=== PATIENT | male | born 1955 ===

== ENCOUNTER 2017-11-21 22:22 | Emergency (ER) | payer BC, MEDICAID ==
[2017-11-21 22:24] VITALS: BMI 34.3
[2017-11-21 22:38] LABS: BASO # 0.1 K/uL (0.0-0.2); EOS # 0.4 K/uL (0.0-0.7); EOS % 2.9 % (0.0-4.0); HEMOGLOBIN 14.1 g/dL (12.0-18.0); LYMPH # 1.2 K/uL (1.0-4.3); LYMPH % 8.7 % (20.0-40.0); MEAN CELL VOLUME 86.2 fL (80.0-94.0); MEAN CORPUSCULAR HEMOGLOBIN 29.1 pg (27.0-31.0); MEAN CORPUSCULAR HGB CONC 33.7 g/dL (33.0-37.0); MEAN PLATELET VOLUME 8.3 fL (7.2-11.7); MONO # 0.7 K/uL (0.0-0.8); MONO % 5.2 % (0.0-10.0); NEUT # 11.1 K/uL (1.8-7.0); NEUT % 82.2 % (50.0-75.0); PLATELET COUNT 189 K/uL (130-400); RBC 4.86 Mil/uL (4.40-5.90); RED CELL DISTRIBUTION WIDTH 13.6 % (11.5-14.5); WHITE BLOOD COUNT 13.5 K/uL (4.8-10.8)
[2017-11-21 22:45] LABS: INR 1.1; PROTHROMBIN TIME 11.6 SECONDS (9.7-12.2)
--- NOTE | 2017-11-21 22:50 | C.PDOC ---
History Of Present Illness 62-year-old male brought in by ambulance for acute change in mental status and left sided weakness. Patient played 2 hours of soccer outside this evening, and had reported feeling lightheaded and dizzy. Patient then left the soccer field and was trying to drive home with and teammate. He then began vomiting and family noted diminished mental status. There was no head trauma during the soccer game. They got the patient home, where he syncopized in the shower, and was found by family lying on shower floor. Last known well at 21:45 tonight. In the ER patient is awake, obtunded, with no preferential gaze. EMS found finger stick to be 240 in the field. Time Seen by Provider: 11/21/17 22:40 Chief Complaint (Nursing): Weakness/Neurological Deficit History Per: Family History/Exam Limitations: no limitations Onset/Duration Of Symptoms: Mins Current Symptoms Are (Timing): Still Present Number Of Syncopal Episodes: 1 Additional History Per: EMS - Symptoms Of CVA Character Of Deficits: Left: Weakness Recent Head Trauma: No Past Medical History Reviewed: Historical Data, Nursing Documentation, Vital Signs Vital Signs: Last Vital Signs Temp 98.8 F 11/21/17 23:33 Pulse 64 11/21/17 23:33 Resp 17 11/21/17 23:33 BP 118/57 L 11/21/17 23:33 Pulse Ox 97 11/21/17 23:43 Other Surgeries: Exploratory abdominal surgery Family History: States: No Known Family Hx - Social History Hx Tobacco Use: No Hx Alcohol Use: No Hx Substance Use: No Review Of Systems Review Of Systems: ROS cannot be obtained secondary to pt's inabilty to answer questions. Cardiovascular: Positive for: Light Headedness Gastrointestinal: Positive for: Vomiting Neurological: Positive for: Weakness (left upper and lower extremities), Altered Mental Status, Dizziness Physical Exam - Physical Exam Skin: Warm, Dry Head: Normacephalic Eye(s): bilateral: PERRL Oral Mucosa: Moist Neck: Normal ROM, Supple Chest: Symmetrical, No Deformity Cardiovascular: Rhythm Regular, No Murmur Respiratory: Normal Breath Sounds, No Rales, No Rhonchi, No Wheezing Gastrointestinal/Abdominal: Soft, No Tenderness, No Distention Back: Normal Inspection Extremity: No Normal ROM (Left arm and leg with no movement), Capillary Refill ( < 2 sec), No Swelling Pulses: Left Dorsalis Pedis: Normal, Right Dorsalis Pedis: Normal Neurological/Psych: Other (Awake, obtunded, no preferential gaze) ED Course And Treatment - Laboratory Results Result Diagrams: 11/21/17 22:35 11/21/17 22:35 O2 Sat by Pulse Oximetry: 97 (RA) Pulse Ox Interpretation: Normal - CT Scan/US Head CT Other Rad Studies (CT/US): Read By Radiologist, Radiology Report Reviewed CT/US Interpretation: 1. Extensive bilateral acute subarachnoid hemorrhage most prominent in the basal cisterns. and sylvian fissure. Findings are suspicious for rupture aneurysm. CT evaluation. recommended. 2. Small amount of intraventricular hemorrhage in the third and fourth ventricles. 3. Mucosal thickening paranasal sinuses with air-fluid levels in the maxillary sinuses. Cannot. exclude acute sinusitis. NIHSS Stroke Scale 2 - Date/Time Evaluation Performed Date Performed: 11/22/17 Time Performed: 22:20 - How Severe is the Stroke Level of Consciousness: 2=Obtunded LOC to Questions: 2=Neither correct LOC to commands: 2=Neither correct Best Gaze: 0=Normal Visual: 0=No visual loss Facial: 0=Normal Motor Arm - Left: 4=No movement Motor Arm - Right: 0=No drift Motor Leg - Left: 4=No movement Motor Leg - Right: 0=No drift Limb Ataxia: 0=Absent Sensory: 0=Normal Best Language: 3=Mute Dysarthia: 2=Severe, near unintelligible or worse Extinction & Inattention (Neglect): 0=Normal, no object Score: 19 Severity Of Stroke: 16-20 = Moderate/Severe Stroke rTPA Inclusion/Exclusion - Refusal of Treatment Patient Refused Treatment: No - Inclusion Criteria for Altepase Patient is 18 years or Older: Yes The Clinical Diagnosis of Ischemic Stroke That is Causing a Potentially Disabling Neurological Deficit: Yes Time of Onset is Well Established to be Less Than 270 Minute Before Treatment Would Begin: Yes Risk/Benefit Discussed With Patient/Family Member Present: No - Exclusion Criteria for Altepase Uncontrolled Hypertension at Time of Treatment (Systolic BP above 185 or Diastolic BP above 110 mmHg): No Active Internal Bleeding: Yes Known Bleeding Diathesis Including but Not Limited to: Platelets Below 100,000/ mm,PTT Above 40 sec After Heparin Use, Current Use of Oral Anitcoagulant With INR Greater Than 1.7 or PT Greater Than 15 secs: No Evidence of an Intracranial Hemorrhage: Yes Evidence of Major Acute Infarct With Signs Greater Than 1/3 MCA Territory: No Suspicion of Subarachnoid Hemorrhage on Pretreatment Evaluation Even if CT Head Negative For Hemorrhage: Yes - Warning to TPA With Conditions Following Conditions Weighed Against Anticipated Benefit: No Medical Decision Making Medical Decision Making: Impression: 62 y/o M with altered mental status, left sided weakness Code Stroke called at 10:20. Plan: --EKG --Head CT --CMP --Hemoglobin A1c --Lipid panel --Troponin I --CBC --PTT --Prothrombin time --Blood type/screen --Urinalysis --Chest X-Ray 22:45 Received call back from Dr. Bingham, who observes large subarachnoid bleed on CT scan and recommends transfer to [place]. 23:05 Spoke with Linda, neurosurgery coordinator at [facility] , patient accepted under service of Dr. Live. Will coordinate transfer with EMS. 23:38 Patient left the ER- transferred to [facility] by [facility] ambulance. Disposition Counseled Patient/Family Regarding: Studies Performed, Diagnosis - Disposition Disposition: Trans to Other Acute Care Hosp Disposition Time: 23:38 Condition: CRITICAL Forms: [facility] ([place]) - POA Core Measure Indicators: Code Stroke - Clinical Impression Clinical Impression: Subarachnoid bleed - Scribe Statement The provider has reviewed the documentation as recorded by the Scribe (Racheal Cote) Provider Attestation: All medical record entries made by the Scribe were at my direction and personally dictated by me. I have reviewed the chart and agree that the record accurately reflects my personal performance of the history, physical exam, medical decision making, and the department course for this patient. I have also personally directed, reviewed, and agree with the discharge instructions and disposition.
[2017-11-21 22:52] LABS: ALB/GLOB RATIO 1.6 (1.0-2.1); ALBUMIN 4.5 g/dL (3.5-5.0); ALT/SGPT 52 U/L (21-72); AST/SGOT 30 U/L (17-59); BLOOD UREA NITROGEN 19 mg/dL (9-20); GFR AFRICAN-AMERICAN > 60; GFR NON-AFRICAN AMERICAN > 60; HDL CHOLESTEROL 31 mg/dL (30-70)
[2017-11-21 22:55] LABS: BANDS 3 % (0-2); EOSINOPHIL 4 % (0-4); LYMPHOCYTE 9 % (20-40); MONOCYTE 2 % (0-10); NEUTROPHIL 82 % (50-75); PLATELET ESTIMATE NORMAL (NORMAL); POIKILOCYTOSIS SLIGHT; TOTAL CELLS COUNTED 100
[2017-11-21 22:56] LABS: LARGE PLATELETS PRESENT; OVALOCYTES SLIGHT
[2017-11-21 23:03] LABS: LDL CHOLESTEROL 91 mg/dL (0-129)
[2017-11-21 23:34] VITALS: O2SAT 97
[2017-11-21 23:43] VITALS: BP 118/57; PULSE 64; RESP 17; TEMP 98.8
--- NOTE | 2017-11-22 06:14 | CT ---
Date of service: 11/21/2017 PROCEDURE: CT HEAD WITHOUT CONTRAST. HISTORY: Code Stroke COMPARISON: None available. TECHNIQUE: Axial computed tomography images were obtained through the head/brain without intravenous contrast. Radiation dose: Total exam DLP = 1739.91 mGy-cm. This CT exam was performed using one or more of the following dose reduction techniques: Automated exposure control, adjustment of the mA and/or kV according to patient size, and/or use of iterative reconstruction technique. FINDINGS: HEMORRHAGE: There is extensive bilateral acute subarachnoid hemorrhage most prominent in the basilar cisterns and sylvian fissures right more than left. Findings are highly suspicious for rupture aneurysm. Small amount of intraventricular hemorrhage noted also at the 3rd and 4th ventricles BRAIN: There is diffuse brain edema and effacement of the sulci noted. There is approximately 2 millimeter [id number] midline shift noted at the frontal region. . VENTRICLES: The ventricles are slightly small in size likely due to acute brain edema and mass effect. CALVARIUM: Unremarkable. PARANASAL SINUSES: Complete opacification of the visualized right frontal sinus and partial opacification of the ethmoid and maxillary sinuses suggestive of sinusitis. MASTOID AIR CELLS: Unremarkable as visualized. No inflammatory changes. OTHER FINDINGS: None. IMPRESSION: Extensive subarachnoid hemorrhage noted bilaterally more prominent at the basilar Systane and sylvian fissures, right larger than left likely due to acute rupture of intracranial aneurysm. Further assessment by CTA is suggested. Diffuse brain edema and effacement of the sulci. Mild right to left midline shift noted at the frontal region measures 2-3 millimeter. Small amount of intraventricular hemorrhage noted at the 3rd and 4th ventricles. Findings suggestive of acute sinusitis involving the right frontal ethmoid and maxillary sinuses. Preliminary report was submitted by [facility].
--- NOTE | 2017-11-22 08:42 | RAD ---
Date of service: 11/21/2017 HISTORY: Code Stroke COMPARISON: No prior. FINDINGS: LUNGS: The lungs are clear. PLEURA: No significant pleural effusion identified, no pneumothorax apparent. CARDIOVASCULAR: Normal. OSSEOUS STRUCTURES: No significant abnormalities. VISUALIZED UPPER ABDOMEN: Normal. OTHER FINDINGS: None. IMPRESSION: No active pulmonary disease.
--- NOTE | 2017-11-24 10:28 | CARD ---
APPROVED REPORT Date of service: 11/21/2017 EKG Measurement Heart [id number] <Conclusion> Sinus rhythm with premature atrial complexes Otherwise normal ECG
== END 2017-11-21 23:40 | disposition short-term general hospital (02) ==
LOC: C.ER 22:22
DX: I60.9 Nontraumatic subarachnoid hemorrhage, unspecified (principal)

== ENCOUNTER 2018-05-18 10:53 | Outpatient (CLI) | payer BC, SELFPAY | END 2018-05-18 10:54 | disposition home or self-care (01) | LOC: C.RADH 10:53 | DX: Z01.818 Encounter for other preprocedural examination (principal) ==